=== PATIENT | female | born 1950 | race Caucasian/White ===

== ENCOUNTER 2025-03-12 06:03 | Emergency (ER) | payer MEDICARE, OTHER ==
[~2025-03-12] VITALS: Ht 157.5 cm; Wt 79.4 kg
[~2025-03-12 06:03] MED LIST: ATENOLOL50 MG PO; LISINOPRIL10 MG PO
[2025-03-12 06:15] VITALS: TEMP 98.4
[2025-03-12 06:57] LABS: STREPTOCOCCUS GRP A ANTIGEN NEGATIVE (NEGATIVE)
[2025-03-12 07:02] LABS: CORONAVIRUS COVID-19 AG NEGATIVE (NEGATIVE)
[2025-03-12] MEDS ORDERED: PREDNISONE20 MG PO (07:25)
[2025-03-12] MEDS ORDERED: AZITHROMYCIN250 MG PO (07:25)
[2025-03-12] MEDS ORDERED: VENTOLIN HFA18 GM INH (07:25)
[2025-03-12 07:26] VITALS: PULSE 58; RESP 18
[2025-03-12 07:28] VITALS: BP 149/78; PULSE 58; O2SAT 99
== END 2025-03-12 07:27 | disposition home or self-care (01) ==
LOC: ER 06:11
DX: R05.9 Cough, unspecified (principal); J06.9 Acute upper respiratory infection, unspecified; I10 Essential (primary) hypertension; E03.9 Hypothyroidism, unspecified; K21.9 Gastro-esophageal reflux disease without esophagitis; Z11.52 Encounter for screening for COVID-19; Z96.641 Presence of right artificial hip joint; Z96.651 Presence of right artificial knee joint
CPT/HCPCS: 71046; 83518; 87070; 99283